=== PATIENT | female | born 1960 | race African-American/Black ===

== ENCOUNTER 2021-08-25 12:32 | Outpatient (REF) | payer MEDICAID, SELFPAY ==
--- NOTE | ~2021-08-25 | MM_ITS ---
EXAMINATION: MM SCREENING DIGITAL BREAST TOMOSYNTHESIS, BILATERAL CLINICAL INFORMATION: Screening. Asymptomatic. Outside left stereotactic biopsy 10/11/2013 (microcalcifications associated with apocrine metaplasia, ductal epithelial hyperplasia without atypia, PASH, and focal fat necrosis). The lifetime risk of breast cancer based on the Tyrer-Cuzick Model is 6%. COMPARISON: Outside mammography 05/27/2015, 05/08/2014 ([facility]). TECHNIQUE: Digital breast tomosynthesis is performed in both the craniocaudal and mediolateral oblique views along with computer-aided detection (CAD). Synthesized 2D images are generated from the tomosynthesis. Additional right MLO view is provided. FINDINGS: There are scattered areas of fibroglandular density (ACR BI-RADS breast composition Category b). Breast tissue composition is predominantly fatty with stable parenchymal asymmetry anterior upper outer left breast adjacent to biopsy clip marker. Bilateral background stromal markings are similar to prior studies. There is no developing density or interval mass or architectural abnormality. No abnormal calcifications. The axilla and skin contours are unremarkable. No significant changes. MM/MM tomosynthesis screening BI IMPRESSION: No mammographic evidence of malignancy. ASSESSMENT: BI-RADS 2: Benign RECOMMENDATION: Routine annual mammography screening. This patient's information was entered into a reminder system with a target due date for their next mammogram.
== END 2021-08-25 12:33 | disposition home or self-care (01) ==
LOC: HO.MAMMO 12:32
PROVIDERS: PCP Student in an Organized Health Care Education/Training Program; Visit Provider Advanced Practice Midwife
DX: Z12.31 Encounter for screening mammogram for malignant neoplasm of breast (principal)
CPT/HCPCS: 77063; 77067

== ENCOUNTER 2021-09-01 14:11 | Outpatient (REF) | payer MEDICAID, SELFPAY ==
--- NOTE | ~2021-09-01 | US_ITS ---
EXAMINATION: US PELVIS CLINICAL INFORMATION: Postmenopausal bleeding COMPARISON: None TECHNIQUE: Ultrasound of the pelvis is performed using both transabdominal and transvaginal transducers along with Doppler. Transvaginal imaging is performed due to inadequate visualization transabdominally. FINDINGS: The uterus is retroverted and measures 6.1 x 3.4 x 3.8 cm in dimension. No focal uterine lesion is seen. Endometrial thickness is normal measuring 0.3 cm. The ovaries are normal-appearing. The right ovary measures 3 x 1.5 x 1 cm. The left ovary measures 2.9 x 0.7 x 1.2 cm. There may be prominent left pelvic vessels. There is no fluid in the pelvis. US/US pelvic and transvaginal IMPRESSION: Normal thickness endometrium.
== END 2021-09-01 14:12 | disposition home or self-care (01) ==
LOC: HO.US 14:11
PROVIDERS: PCP Student in an Organized Health Care Education/Training Program; Visit Provider Advanced Practice Midwife
DX: N95.0 Postmenopausal bleeding (principal)
CPT/HCPCS: 76830; 76856

== ENCOUNTER 2021-09-10 10:32 | Outpatient (REF) | payer MEDICAID, SELFPAY ==
--- NOTE | ~2021-09-10 | MM_ITS ---
EXAMINATION: BONE DENSITOMETRY CLINICAL INDICATION: Menopause. COMPARISON: This is the patient's baseline examination. TECHNIQUE: Using a [employer] DXA System (software version: 13.1) manufactured by [employer], dual-energy x-ray absorptiometry was performed of the lumbar spine and left hip. The images are of good technical quality. Summary results are attached. FINDINGS: AP SPINE L1-L4: BMD 1.179 g/cm2, Z-score -0.7, T-score 0.0, normal. LEFT FEMUR, NECK: BMD 0.874 g/cm2, Z-score -1.6, T-score -1.2, osteopenia. LEFT FEMUR, TOTAL: BMD 1.070 g/cm2, Z-score -0.4, T-score -0.5, normal. IDENTIFIED RISK FACTORS: Rheumatoid arthritis. Low calcium intake. Secondary osteoporosis (early menopause). Anticonvulsants. Thiazide. HISTORY OF FRACTURE: None listed. MEDICATIONS: Vitamin D. MM/XR DEXA axial skeleton IMPRESSION: 1. DIAGNOSIS: Osteopenia based on the lowest T-score value of -1.2 in the femoral neck applying World Health Organization criteria. 2. 10-YEAR FRACTURE RISK PREDICTION, FRAX: Major osteoporotic fracture (clinical spine, forearm, hip or shoulder) 3.7%. Hip fracture 0.2%. 3. Treatment Recommendations: NOF guidelines recommend consideration for treatment in postmenopausal women and men age 50 and older presenting with the following: -A hip or vertebral (clinical or morphometric) fracture. -T-score less than or equal to -2.5 at the femoral neck or spine after appropriate evaluation to exclude secondary causes. -Low bone mass at the hip or spine and a 10-year fracture probability by FRAX of greater than or equal to 3% for hip fracture or greater than or equal to 20% for major osteoporotic fracture based on the [place] adapted WHO algorithm. 4. Other Recommendations: All treatment decisions require clinical judgment and consideration of individual patient factors, including patient preferences, comorbidities, previous drug use, risk factors not captured in the FRAX model (e.g. frailty, falls, vitamin D deficiency, increased bone turnover, interval significant decline in bone density) and possible under or overestimation of fracture risk by FRAX. Additional medical evaluation for secondary cause of low bone mineral density may be appropriate. FUTURE SCAN RECOMMENDATION: People with diagnosed cases of osteoporosis or at high risk for fracture should have regular bone mineral density tests. For patients eligible for Medicare, routine testing is allowed once every 2 years. The testing frequency can be increased to one year for patients who have rapidly progressing disease, those who are receiving or discontinuing medical therapy to restore bone mass, or have additional risk factors.
== END 2021-09-10 10:33 | disposition home or self-care (01) ==
LOC: HO.MAMMO 10:32
PROVIDERS: PCP Student in an Organized Health Care Education/Training Program; Visit Provider Advanced Practice Midwife
DX: Z13.820 Encounter for screening for osteoporosis (principal); E28.319 Asymptomatic premature menopause; M06.9 Rheumatoid arthritis, unspecified; E83.51 Hypocalcemia; Z79.899 Other long term (current) drug therapy
CPT/HCPCS: 77080